=== PATIENT | male | born 1965 | race Caucasian/White ===

== ENCOUNTER 2017-07-28 12:51 | Inpatient (IN) | payer MEDICARE, MEDICAID ==
[~2017-07-28] VITALS: Ht 182.9 cm; Wt 144.5 kg
[2017-07-28] MEDS ORDERED: cloNIDine HCL 0.1 MG TAB PO ONE (13:30)
[2017-07-28 13:47] LABS: Basophils # (auto) 0.1 uL; Basophils % (auto) 1.2 % (0.0-2.0); Eosinophils # (auto) 0.2 uL; Eosinophils % (auto) 2.9 % (0.0-7.0); Hematocrit 43.1 % (41.0-53.0); Lymphocytes # (auto) 1.4 uL; Lymphocytes % (auto) 17.3 % (10.0-50.0); Mean Corpuscular Hemoglobin 31.9 pg (28.0-32.0); Mean Corpuscular Hgb Conc. 34.8 g/dL (32.0-36.0); Mean Corpuscular Volume 91.7 fL (80.0-100.0); Monocytes # (auto) 0.8 uL; Monocytes % (auto) 9.8 % (0.0-12.0); Neutrophils # (auto) 5.6 uL; Neutrophils % (auto) 68.8 % (37.0-80.0); Platelet Count (auto) 156 10^3/uL (140-450); Red Cell Distribution Width 14.9 % (11.8-14.3); White Blood Cell 8.2 10^3/uL (4.4-10.8)
[2017-07-28] MEDS ORDERED: FUROSEMIDE 40 MG/4 ML VIAL IV ONE (14:00)
[2017-07-28] MEDS ORDERED: ASPirin 81 mg TAB PO ONE (14:00)
[2017-07-28 14:05] LABS: Albumin 2.9 g/dL (3.4-5.0); BUN/Creatinine Ratio 15.7; Bilirubin, Total 0.6 mg/dL (0.2-1.0); Calcium 8.5 mg/dL (8.5-10.1); Potassium 3.8 mmol/L (3.5-5.1); Total Protein 6.7 g/dL (6.4-8.2)
[2017-07-28] MEDS ORDERED: MORPHINE SULFATE 4 MG/ML SYR/VIAL IV PRN (20:45)
[2017-07-28] MEDS ORDERED: NITROGLYCERIN 0.4 MG SL TAB SL PRN (20:45)
[2017-07-28] MEDS ORDERED: cloNIDine HCL 0.1 MG TAB PO PRN (20:45)
[2017-07-28] MEDS ORDERED: DEXTROSE (50%) 50ML SYRG IV PRN (20:45)
[2017-07-28] MEDS ORDERED: ONDANSETRON HCL 4 MG/2 ML VIAL IV PRN (20:45)
[2017-07-28] MEDS ORDERED: ACETAMINOPHEN 325 MG TAB PO PRN (20:45)
[2017-07-28] MEDS ORDERED: ENOXAPARIN SOD 150 MG/1 ML SYRINGE SC ONE (20:45)
[2017-07-28] MEDS ORDERED: IOHEXOL 350 MG/ML 100ML IJ ONE (21:21)
[2017-07-28] MEDS ORDERED: cloNIDine HCL 0.1 MG TAB ONE (21:38)
[2017-07-28] MEDS: FAMOTIDINE 20 MG TAB PO SCH (22:15)
[2017-07-28] MEDS: METOPROLOL TARTRATE 25 MG TAB PO SCH (22:15)
[2017-07-28] MEDS: HYDROcodone-ACET 5/325MG TAB PO PRN (22:16)
[2017-07-28 22:54] VITALS: BP 161/117
[2017-07-29] VITALS (7 sets, daily range): BP systolic 137–161; BP diastolic 74–119
[2017-07-29] MEDS: TEMAZEPAM 15 MG CAP PO PRN (01:00)
[2017-07-29] MEDS: ACCU-CHEK COMFORT CURVE STRIP VI SCH ×5 (01:01→23:44)
[2017-07-29] MEDS: InsuLIN REG 1unit/0.01ml Soln (100units/ml) SC SCH ×5 (01:01→23:45)
[2017-07-29] MEDS ORDERED: PREG50CA PO (02:05)
[2017-07-29] MEDS ORDERED: DIGO0.2570 PO (02:05)
[2017-07-29] MEDS ORDERED: AMIO200T33 PO (02:05)
[2017-07-29] MEDS ORDERED: SPIR25TA89 PO (02:05)
[2017-07-29] MEDS: HYDROcodone-ACET 5/325MG TAB PO PRN ×3 (05:31→22:08)
[2017-07-29 07:34] LABS: Basophils # (auto) 0.1 uL; Basophils % (auto) 1.1 % (0.0-2.0); Eosinophils # (auto) 0.3 uL; Eosinophils % (auto) 4.2 % (0.0-7.0); Hematocrit 41.2 % (41.0-53.0); Hemoglobin 14.2 g/dL (13.5-17.5); Lymphocytes # (auto) 1.8 uL; Lymphocytes % (auto) 25.5 % (10.0-50.0); Mean Corpuscular Hemoglobin 31.9 pg (28.0-32.0); Mean Corpuscular Hgb Conc. 34.5 g/dL (32.0-36.0); Mean Corpuscular Volume 92.5 fL (80.0-100.0); Monocytes # (auto) 0.7 uL; Monocytes % (auto) 10.1 % (0.0-12.0); Neutrophils # (auto) 4.3 uL; Neutrophils % (auto) 59.1 % (37.0-80.0); Nucleated Red Blood Cells % 0.1 %; Platelet Count (auto) 145 10^3/uL (140-450); Red Blood Cells 4.45 10^6/uL (4.5-5.90); Red Cell Distribution Width 14.8 % (11.8-14.3); White Blood Cell 7.2 10^3/uL (4.4-10.8)
[2017-07-29 07:50] LABS: Albumin 2.6 g/dL (3.4-5.0); BUN/Creatinine Ratio 15.9; Bilirubin, Total 0.8 mg/dL (0.2-1.0); Calcium 8.5 mg/dL (8.5-10.1); Potassium 3.1 mmol/L (3.5-5.1); Total Protein 6.3 g/dL (6.4-8.2)
[2017-07-29] MEDS: SPIRONOLACTONE 25 MG TAB PO SCH (09:41)
[2017-07-29] MEDS: METOPROLOL TARTRATE 25 MG TAB PO SCH ×2 (09:41→21:41)
[2017-07-29] MEDS: amLODIPine BESYLATE 5 MG TAB PO SCH (09:42)
[2017-07-29] MEDS: DIGOXIN 0.125 MG TAB PO SCH (09:43)
[2017-07-29] MEDS: FAMOTIDINE 20 MG TAB PO SCH ×2 (09:43→21:40)
[2017-07-29] MEDS ORDERED: FUROSEMIDE 40 MG TAB PO SCH (10:00)
[2017-07-29] MEDS ORDERED: ENOXAPARIN SOD 40 MG/0.4 ML SYRINGE SC SCH (10:00)
[2017-07-29] MEDS ORDERED: POTASSIUM CHL 10 Meq TABLET PO ONE (11:45)
[2017-07-29] MEDS ORDERED: FUROSEMIDE 40 MG TAB PO ONE (11:45)
[2017-07-29] MEDS ORDERED: LORazepam 2MG/ML-1ML VIAL IV PRN (12:15)
[2017-07-29] MEDS ORDERED: BUMETANIDE (0.25 MG/ML) INJ 10ML IV ONE (13:45)
[2017-07-29] MEDS: Boost Glucose Control 8 Ounces PO SCH ×2 (13:45→18:00)
[2017-07-29] MEDS ORDERED: ENOXAPARIN SOD 100 MG/1 ML SYRINGE SC ONE (14:00)
[2017-07-29 17:47] LABS: Alcohol, Urine < 3.0 mg/dL (0-5); Amphetamine Screen, Urine NEGATIVE (NEGATIVE); Barbiturate Scree,Urine NEGATIVE (NEGATIVE); Benzodiazephine Screen, Urine NEGATIVE (NEGATIVE); Cannabinoid Screen, Urine NEGATIVE (NEGATIVE); Cocaine Screen, Urine NEGATIVE (NEGATIVE); Opiate Scree,Urine NEGATIVE (NEGATIVE); Phencyclidine Screen, Urine NEGATIVE (NEGATIVE)
[2017-07-29 17:50] LABS: Urine Bacteria FEW /hpf (None Seen); Urine Blood Negative /uL (Negative); Urine Specific Gravity 1.005 (1.001-1.035); Urine WBC 1 /hpf (0 - 3)
[2017-07-29] MEDS: ENOXAPARIN SOD 150 MG/1 ML SYRINGE SC SCH (21:40)
[2017-07-30] VITALS (8 sets, daily range): BP systolic 116–155; BP diastolic 66–109
[2017-07-30] MEDS: TEMAZEPAM 15 MG CAP PO PRN (01:07)
[2017-07-30] MEDS: InsuLIN REG 1unit/0.01ml Soln (100units/ml) SC SCH ×3 (06:00→17:44)
[2017-07-30] MEDS: ACCU-CHEK COMFORT CURVE STRIP VI SCH ×3 (06:00→17:45)
[2017-07-30 06:30] LABS: Basophils # (auto) 0.1 uL; Basophils % (auto) 1.2 % (0.0-2.0); Eosinophils # (auto) 0.3 uL; Eosinophils % (auto) 3.9 % (0.0-7.0); Hematocrit 40.9 % (41.0-53.0); Hemoglobin 14.1 g/dL (13.5-17.5); Lymphocytes # (auto) 1.8 uL; Lymphocytes % (auto) 26.3 % (10.0-50.0); Mean Corpuscular Hemoglobin 31.9 pg (28.0-32.0); Mean Corpuscular Hgb Conc. 34.4 g/dL (32.0-36.0); Mean Corpuscular Volume 92.6 fL (80.0-100.0); Monocytes # (auto) 0.6 uL; Monocytes % (auto) 9.2 % (0.0-12.0); Neutrophils # (auto) 4.1 uL; Neutrophils % (auto) 59.4 % (37.0-80.0); Nucleated Red Blood Cells % 0.2 %; Platelet Count (auto) 151 10^3/uL (140-450); Red Blood Cells 4.41 10^6/uL (4.5-5.90); Red Cell Distribution Width 14.8 % (11.8-14.3); White Blood Cell 6.8 10^3/uL (4.4-10.8)
[2017-07-30 06:38] LABS: INR 1.02 (0.9-1.15); Partial Thromboplastin Time 34.4 sec (22.64-33.71); Prothrombin Time 11.1 sec (9.37-12.3)
[2017-07-30 06:45] LABS: Potassium 3.4 mmol/L (3.5-5.1)
[2017-07-30 06:46] LABS: BUN/Creatinine Ratio 17.3
[2017-07-30] MEDS: Boost Glucose Control 8 Ounces PO SCH ×3 (08:00→18:00)
[2017-07-30] MEDS: amLODIPine BESYLATE 5 MG TAB PO SCH (09:28)
[2017-07-30] MEDS: SPIRONOLACTONE 25 MG TAB PO SCH (09:29)
[2017-07-30] MEDS: FUROSEMIDE 40 MG TAB PO SCH (09:29)
[2017-07-30] MEDS: FAMOTIDINE 20 MG TAB PO SCH ×2 (09:29→22:40)
[2017-07-30] MEDS: DIGOXIN 0.125 MG TAB PO SCH (09:31)
[2017-07-30] MEDS: METOPROLOL TARTRATE 25 MG TAB PO SCH ×2 (09:31→22:41)
[2017-07-30] MEDS: ENOXAPARIN SOD 150 MG/1 ML SYRINGE SC SCH (09:32)
[2017-07-30] MEDS ORDERED: IODIXANOL 320MG/ML 100ML BTL IV ONE (10:50)
[2017-07-30] MEDS ORDERED: LIDOCAINE HCL 2 %PF INJ 10ML AMP IJ ONE (10:50)
[2017-07-30] MEDS ORDERED: fentaNYL CITRATE 100 MCG/2 ML VL ONE (12:13)
[2017-07-30] MEDS ORDERED: MIDAZOLAM HCL 1MG/1ML-2 ML VIAL ONE (12:13)
[2017-07-30] MEDS ORDERED: ANGIOMAX 250 MG VIAL IV ONE (12:13)
[2017-07-30] MEDS ORDERED: SODIUM CHL 0.9% 0 ML ONE (12:13)
[2017-07-30] MEDS ORDERED: POTASSIUM CHL 10 Meq TABLET PO ONE (12:15)
[2017-07-30] MEDS ORDERED: EPTIFIBATIDE INJ (2MG/ML) 10ML VIAL IV ONE (12:17)
[2017-07-30] MEDS ORDERED: VERAPAMIL 2.5MG/ML INJ 2ML VIAL IV ONE (12:17)
[2017-07-30] MEDS ORDERED: HEPARIN SODIUM (PORCINE) 5000 UNITS/ML 1ML VIAL ONE (12:38)
[2017-07-30] MEDS ORDERED: BUMETANIDE (0.25 MG/ML) INJ 10ML IV ONE (13:00)
[2017-07-30] MEDS: cloNIDine HCL 0.1 MG TAB PO PRN (13:47)
[2017-07-30] MEDS ORDERED: cloNIDine HCL 0.1 MG TAB PO ONE (14:30)
[2017-07-30] MEDS: AMIODARONE HCL 200 MG TAB PO SCH ×2 (15:36→22:41)
[2017-07-30] MEDS ORDERED: IPRATROPIUM BROM 0.5 MG/2.5ML INH SOL NEB PRN (15:45)
[2017-07-30] MEDS ORDERED: ALBUTEROL SULF 2.5 MG/0.5ML(0.5%) NEB SOLN NEB PRN (15:45)
[2017-07-30] MEDS: RIVAROXABAN 20 MG TAB PO SCH (17:45)
[2017-07-30] MEDS: IPRATROPIUM BROM 0.5 MG/2.5ML INH SOL NEB SCH (19:30)
[2017-07-30] MEDS: ALBUTEROL SULF 2.5 MG/0.5ML(0.5%) NEB SOLN NEB SCH (19:30)
[2017-07-30] MEDS: HYDROcodone-ACET 5/325MG TAB PO PRN (22:40)
[2017-07-31] VITALS (8 sets, daily range): BP systolic 147–168; BP diastolic 92–101
[2017-07-31] MEDS: ACCU-CHEK COMFORT CURVE STRIP VI SCH ×4 (00:21→18:33)
[2017-07-31] MEDS: InsuLIN REG 1unit/0.01ml Soln (100units/ml) SC SCH ×4 (00:22→18:34)
[2017-07-31] MEDS: IPRATROPIUM BROM 0.5 MG/2.5ML INH SOL NEB SCH ×4 (00:51→18:48)
[2017-07-31] MEDS: ALBUTEROL SULF 2.5 MG/0.5ML(0.5%) NEB SOLN NEB SCH ×4 (00:51→18:49)
[2017-07-31] MEDS: TEMAZEPAM 15 MG CAP PO PRN (01:21)
[2017-07-31 06:20] LABS: Basophils # (auto) 0.1 uL; Eosinophils # (auto) 0.2 uL; Hemoglobin 14.7 g/dL (13.5-17.5); Lymphocytes # (auto) 1.7 uL; Mean Corpuscular Hemoglobin 31.8 pg (28.0-32.0); Monocytes # (auto) 0.7 uL; Red Blood Cells 4.62 10^6/uL (4.5-5.90)
[2017-07-31 06:32] LABS: Basophils % (auto) 1.1 % (0.0-2.0); Eosinophils % (auto) 3.3 % (0.0-7.0); Hematocrit 42.9 % (41.0-53.0); Lymphocytes % (auto) 24.3 % (10.0-50.0); Mean Corpuscular Hgb Conc. 34.3 g/dL (32.0-36.0); Mean Corpuscular Volume 92.8 fL (80.0-100.0); Monocytes % (auto) 9.4 % (0.0-12.0); Neutrophils # (auto) 4.4 uL; Neutrophils % (auto) 61.9 % (37.0-80.0); Nucleated Red Blood Cells % 0.1 %; Platelet Count (auto) 164 10^3/uL (140-450); Red Cell Distribution Width 14.8 % (11.8-14.3); White Blood Cell 7.1 10^3/uL (4.4-10.8)
[2017-07-31 06:50] LABS: BUN/Creatinine Ratio 20.6; Bilirubin, Total 0.5 mg/dL (0.2-1.0); Calcium 9.4 mg/dL (8.5-10.1); Potassium 3.9 mmol/L (3.5-5.1)
[2017-07-31] MEDS: HYDROcodone-ACET 5/325MG TAB PO PRN ×2 (07:02→21:47)
[2017-07-31] MEDS: SPIRONOLACTONE 25 MG TAB PO SCH (10:04)
[2017-07-31] MEDS: amLODIPine BESYLATE 5 MG TAB PO SCH (10:05)
[2017-07-31] MEDS: FAMOTIDINE 20 MG TAB PO SCH ×2 (10:05→21:46)
[2017-07-31] MEDS: METOPROLOL TARTRATE 25 MG TAB PO SCH ×2 (10:06→21:47)
[2017-07-31] MEDS: DIGOXIN 0.125 MG TAB PO SCH (10:06)
[2017-07-31] MEDS: FUROSEMIDE 40 MG TAB PO SCH (10:06)
[2017-07-31] MEDS: AMIODARONE HCL 200 MG TAB PO SCH ×2 (10:07→21:47)
[2017-07-31] MEDS: Boost Glucose Control 8 Ounces PO SCH ×3 (10:08→18:32)
[2017-07-31] MEDS: cloNIDine HCL 0.1 MG TAB PO PRN ×2 (12:37→18:36)
[2017-07-31] MEDS ORDERED: AML5T PO (14:41)
[2017-07-31] MEDS ORDERED: SPIR25TA88 PO (14:41)
[2017-07-31] MEDS ORDERED: AMI200T PO (14:41)
[2017-07-31] MEDS ORDERED: FURO40TA4 PO (14:41)
[2017-07-31] MEDS ORDERED: PATIENTS OWN MEDICATION (xarelto 20 MG) PO SCH (18:00)
[2017-07-31] MEDS: RIVAROXABAN 20 MG TAB PO SCH (18:33)
[2017-08-01] MEDS: IPRATROPIUM BROM 0.5 MG/2.5ML INH SOL NEB SCH ×3 (00:49→12:07)
[2017-08-01] MEDS: ALBUTEROL SULF 2.5 MG/0.5ML(0.5%) NEB SOLN NEB SCH ×3 (00:49→12:07)
[2017-08-01] MEDS: InsuLIN REG 1unit/0.01ml Soln (100units/ml) SC SCH ×3 (00:50→13:54)
[2017-08-01] MEDS: TEMAZEPAM 15 MG CAP PO PRN (02:33)
[2017-08-01] MEDS: HYDROcodone-ACET 5/325MG TAB PO PRN ×2 (02:34→09:49)
[2017-08-01 05:34] VITALS: BP 189/79
[2017-08-01] MEDS: ACCU-CHEK COMFORT CURVE STRIP VI SCH ×3 (06:00→12:00)
[2017-08-01 08:00] VITALS: BP 169/90
[2017-08-01] MEDS: Boost Glucose Control 8 Ounces PO SCH ×2 (08:00→12:00)
[2017-08-01 09:00] VITALS: BP 169/90
[2017-08-01] MEDS: SPIRONOLACTONE 25 MG TAB PO SCH (09:46)
[2017-08-01] MEDS: amLODIPine BESYLATE 5 MG TAB PO SCH (09:46)
[2017-08-01] MEDS: DIGOXIN 0.125 MG TAB PO SCH (09:47)
[2017-08-01] MEDS: AMIODARONE HCL 200 MG TAB PO SCH (09:47)
[2017-08-01] MEDS: FAMOTIDINE 20 MG TAB PO SCH (09:49)
[2017-08-01] MEDS: FUROSEMIDE 40 MG TAB PO SCH (09:50)
[2017-08-01] MEDS ORDERED: METOPROLOL TARTRATE 50 MG TAB PO SCH (10:00)
[2017-08-01] MEDS ORDERED: METOPROLOL TARTRATE 25 MG TAB PO SCH (10:00)
[2017-08-01 11:39] LABS: BUN/Creatinine Ratio 18.1; Calcium 9.3 mg/dL (8.5-10.1)
[2017-08-01] MEDS ORDERED: MET50T PO (12:07)
[2017-08-01] MEDS ORDERED: RIV20T PO (12:11)
[2017-08-01 13:00] VITALS: BP 146/93
[2017-08-01 15:49] VITALS: BP 146/93
[2017-08-01 16:35] VITALS: BP 146/93
== END 2017-08-01 16:35 | DRG 280 ==
LOC: ER 12:51 → TELE 12:52 → TELE-WESTW 22:55
PROVIDERS: ADMIT Nurse Practitioner; ATTEND Internal Medicine
PROC: 4A023N7 Measurement of Cardiac Sampling and Pressure, Left Heart, Percutaneous Approach (ICD-10-PCS; principal; 2017-07-30)
PROC: B2111ZZ Fluoroscopy of Multiple Coronary Arteries using Low Osmolar Contrast (ICD-10-PCS; 2017-07-30)
DX: I11.0 Hypertensive heart disease with heart failure (principal); I21.4 Non-ST elevation (NSTEMI) myocardial infarction; J96.00 Acute respiratory failure, unspecified whether with hypoxia or hypercapnia; E44.0 Moderate protein-calorie malnutrition; D68.69 Other thrombophilia; E11.51 Type 2 diabetes mellitus with diabetic peripheral angiopathy without gangrene; E11.65 Type 2 diabetes mellitus with hyperglycemia; I48.1 Persistent atrial fibrillation; I48.92 Unspecified atrial flutter; Z68.41 Body mass index [BMI] 40.0-44.9, adult; I50.43 Acute on chronic combined systolic (congestive) and diastolic (congestive) heart failure; E66.01 Morbid (severe) obesity due to excess calories; F17.210 Nicotine dependence, cigarettes, uncomplicated; J44.9 Chronic obstructive pulmonary disease, unspecified; F12.90 Cannabis use, unspecified, uncomplicated; G89.29 Other chronic pain; E87.6 Hypokalemia; R74.8 Abnormal levels of other serum enzymes; G47.00 Insomnia, unspecified; I25.10 Atherosclerotic heart disease of native coronary artery without angina pectoris; M54.42 Lumbago with sciatica, left side; M54.41 Lumbago with sciatica, right side; I25.2 Old myocardial infarction; Z86.73 Personal history of transient ischemic attack (TIA), and cerebral infarction without residual deficits; Z71.89 Other specified counseling
CPT/HCPCS: 36415; 71046; 71275; 80048; 80053; 80307; 81001; 82962; 83036; 83735; 83880; 84484; 85025; 85379; 85610; 85730; 93005; 93306; 93458; 93970; 94640; 94761; 96372; 96374; 99152; J1815; J2250; J2405; Q9967

== ENCOUNTER 2018-07-18 13:01 | Emergency (ER) | payer MEDICARE, MEDICAID ==
[~2018-07-18] VITALS: Ht 182.9 cm; Wt 154.2 kg
[~2018-07-18 13:01] MED LIST: AMI200T PO; AMIO200T33 PO; AML5T PO; DIGO0.2570 PO; FURO40TA4 PO; MET50T PO; PREG50CA PO; RIV20T PO; SPIR25TA88 PO
[2018-07-18 15:42] LABS: Basophils # (auto) 0.1 uL; Eosinophils # (auto) 0.2 uL; Hematocrit 46.8 % (41.0-53.0); Hemoglobin 16.4 g/dL (13.5-17.5); Lymphocytes # (auto) 1.7 uL; Lymphocytes % (auto) 21.1 % (10.0-50.0); Mean Corpuscular Hemoglobin 33.1 pg (28.0-32.0); Mean Corpuscular Volume 94.6 fL (80.0-100.0); Monocytes # (auto) 0.8 uL; Monocytes % (auto) 9.5 % (0.0-12.0); Neutrophils # (auto) 5.3 uL; Neutrophils % (auto) 65.4 % (37.0-80.0); Nucleated Red Blood Cells % 0.2 %; Platelet Count (auto) 139 10^3/uL (140-450); Red Blood Cells 4.95 10^6/uL (4.5-5.90); Red Cell Distribution Width 13.9 % (11.8-14.3); White Blood Cell 8.1 10^3/uL (4.4-10.8)
[2018-07-18 15:48] LABS: Albumin 3.4 g/dL (3.4-5.0); Potassium 3.6 mmol/L (3.5-5.1)
[2018-07-18 15:52] LABS: BUN/Creatinine Ratio 13.4; Bilirubin, Total 0.8 mg/dL (0.2-1.0); Total Protein 7.2 g/dL (6.4-8.2)
[2018-07-18] MEDS ORDERED: SODIUM CHLORIDE 0.9% 1,000 ML IV ONE (18:15)
[2018-07-18] MEDS ORDERED: InsuLIN REG 1unit/0.01ml Soln (100units/ml) IV ONE (18:15)
[2018-07-18 20:20] LABS: Amphetamine Screen, Urine NEGATIVE (NEGATIVE); Barbiturate Scree,Urine NEGATIVE (NEGATIVE); Cannabinoid Screen, Urine POSITIVE (NEGATIVE); Cocaine Screen, Urine NEGATIVE (NEGATIVE); Opiate Scree,Urine NEGATIVE (NEGATIVE); Phencyclidine Screen, Urine NEGATIVE (NEGATIVE)
[2018-07-18 20:27] LABS: Benzodiazephine Screen, Urine NEGATIVE (NEGATIVE)
[2018-07-18 20:32] LABS: Urine Bacteria FEW /hpf (None Seen); Urine Blood Negative /uL (Negative); Urine Hyaline Cast FEW /lpf (0 - 2); Urine Mucus FEW (None Seen); Urine Specific Gravity 1.023 (1.001-1.035); Urine WBC 2 /hpf (0 - 3)
[2018-07-18] MEDS ORDERED: HYDROmorphone HCL 2 MG/ML VL IV ONE ×2 (23:30)
[2018-07-18] MEDS ORDERED: ONDANSETRON HCL 4 MG/2 ML VIAL IV ONE (23:30)
[2018-07-19 00:41] VITALS: BP 184/88
== END 2018-07-19 00:42 | disposition home or self-care (01) ==
LOC: ER 13:07
DX: M54.16 Radiculopathy, lumbar region (principal); E11.65 Type 2 diabetes mellitus with hyperglycemia; G89.4 Chronic pain syndrome; I48.91 Unspecified atrial fibrillation; J44.9 Chronic obstructive pulmonary disease, unspecified; I25.2 Old myocardial infarction; E07.9 Disorder of thyroid, unspecified; F17.210 Nicotine dependence, cigarettes, uncomplicated; F15.90 Other stimulant use, unspecified, uncomplicated; Z88.8 Allergy status to other drugs, medicaments and biological substances; Z86.73 Personal history of transient ischemic attack (TIA), and cerebral infarction without residual deficits; Z79.899 Other long term (current) drug therapy
CPT/HCPCS: 36415; 72128; 72131; 80053; 80307; 80320; 81001; 82010; 82962; 83036; 85025; 93005; 96361; 96374; 96375; 99284; J1170; J1815; J2405; J7030

== ENCOUNTER 2019-03-04 12:44 | Inpatient (IN) | payer OTHER, MEDICAID ==
[2019-03-04] VITALS (18 sets, daily range): BP systolic 119–156; BP diastolic 40–99
[~2019-03-04] VITALS: Ht 190.5 cm; Wt 154.0 kg
--- NOTE | 2019-03-04 12:15 | NUR ---
Pt being admitted to ICU ZACHHARINDER admitted to ICU via gurney on radiation monitor, and portable 02. Patient transfered to bed, connected to ICU monitoring and oxygen, and weighed by bedscale. Patient oriented to Yg frank RN, unit, room, bed, and unit policies regarding patient care and visiting hours. All questions and concerns addressed, patient verbalized understanding.
[~2019-03-04 12:44] MED LIST changes: -AMI200T PO; +AMIO200T4 PO
[2019-03-04] MEDS ORDERED: DEXTROSE (50%) 50ML SYRG IV PRN (13:00)
[2019-03-04] MEDS ORDERED: MORPHINE SULF INJ 2 MG/ML SYRINGE 1ML IV PRN ×2 (13:00→13:15)
[2019-03-04] MEDS ORDERED: NITROGLYCERIN 0.4 MG SL TAB SL PRN (13:00)
--- NOTE | 2019-03-04 13:05 | NUR ---
JEFF JAQUEZ AT BEDSIDE
[2019-03-04] MEDS ORDERED: ACETAMINOPHEN 500 MG TAB PO PRN (13:15)
[2019-03-04] MEDS ORDERED: NITROGLYCERIN 50MG/250ML 250 ML IV SCH (13:15)
[2019-03-04 14:06] LABS: Basophils # (auto) 0.1 uL; Basophils % (auto) 1.1 % (0.0-2.0); Eosinophils # (auto) 0.3 uL; Eosinophils % (auto) 5.1 % (0.0-7.0); Hemoglobin 15.6 g/dL (13.5-17.5); Lymphocytes # (auto) 0.8 uL; Lymphocytes % (auto) 15.2 % (10.0-50.0); Mean Corpuscular Hemoglobin 32.1 pg (28.0-32.0); Mean Corpuscular Volume 94.5 fL (80.0-100.0); Monocytes # (auto) 0.8 uL; Neutrophils # (auto) 3.5 uL; Neutrophils % (auto) 63.6 % (37.0-80.0); Nucleated Red Blood Cells % 0.1 %; Platelet Count (auto) 126 10^3/uL (140-450); Red Blood Cells 4.87 10^6/uL (4.5-5.90); Red Cell Distribution Width 13.9 % (11.8-14.3); White Blood Cell 5.4 10^3/uL (4.4-10.8)
[2019-03-04] MEDS: HYDROcodone-ACET 5/325MG TAB PO PRN ×2 (14:11→22:33)
--- NOTE | 2019-03-04 14:21 | NUR ---
MEDICATION RECONCILIATION UNABLE TO PERFORM MED REC. PATIENT HAS NO LIST OF MEDICATIONS. PER PATIENT HE WILL HAVE SOMEONE FAX PATIENTS CURRENT MEDICATIONS TO ICU FAX MACHINE
[2019-03-04 14:23] LABS: INR 0.95 (0.9-1.15); Partial Thromboplastin Time 27.7 sec (23.64-32.05)
[2019-03-04 14:37] LABS: Calcium 8.7 mg/dL (8.5-10.1); Potassium 4.1 mmol/L (3.5-5.1)
--- NOTE | 2019-03-04 14:46 | NUR ---
EKG PERFORMED AND PLACED IN CHART
[2019-03-04] MEDS ORDERED: NITROGLYCERIN 0.4MG/HR TOPICAL PATCH TD ONE (16:00)
--- NOTE | 2019-03-04 16:17 | NUR ---
PATIENT OUT OF BED TO CHAIR
--- NOTE | 2019-03-04 17:08 | NUR ---
DR. ODOM AT BEDSIDE
[2019-03-04] MEDS: ACCU-CHEK COMFORT CURVE STRIP VI SCH ×2 (17:32→22:00)
[2019-03-04] MEDS: InsuLIN REG 1unit/0.01ml Soln (100units/ml) SC SCH ×2 (17:33→22:00)
[2019-03-04] MEDS ORDERED: RIVAROXABAN 20 MG TAB PO SCH (18:00)
--- NOTE | 2019-03-04 18:32 | NUR ---
PATIENT PROVIDED WITH DINNER TRAY
--- NOTE | 2019-03-04 19:10 | NUR ---
OPEN ASSUMED CARE OF MALE PT.PT IS AOX4, NL 2 L, LUNGS ARE DIMINISHED. PT IS SITTING UP IN THE CHAIR NEXT TO HIS BED WATCHING TV, VS ARE WNL, NO SS OF DISTRESS NOTED AT THIS TIME. PT SKIN IS INTACT, PT AMBULATES TO AND FROM CHAIR AND BED WITHOUT ASSISTANCE. PT HAS R 20 AC IV AND A R 20 HAND IV. BOTH IVS FLUSHED WITH NS, THEY ARE PATENT, FLUSHED WITHOUT RESISTANCE. BILATERALLY ASYMPTOMATIC. PT HAS SLIP RESISTANT SOCK ON AND WAS EDUCATED ON THE CALL LIGHT. PT VERBALIZED UNDERSTANDING. CALL LIGHT WITHIN REACH. CHAIR IS LOCKED. PT IS IN FULL VIEW OF RN STATION, WILL CONTINUE TO CARE FOR AND MONITOR.
[2019-03-04] MEDS ORDERED: ENOXAPARIN SOD 120 MG/0.8 ML SYRINGE SC SCH (22:00)
[2019-03-04] MEDS: ENOXAPARIN SOD 120 MG/0.8 ML SYRINGE SC SCH (22:00)
--- NOTE | 2019-03-04 22:30 | NUR ---
PAIN PT STATED HE WAS IN PAIN 12/29. VS ARE STABLE. PT WAS GIVEN PRESCRIBED PAIN MEDICATION. WILL REASSESS.
--- NOTE | 2019-03-04 22:30 | NUR ---
INSULIN PT BS REQUIRED INSULIN, INSULIN WAS GIVEN ACCORDING PROTOCOL PRESCRIBED TO PT.
[2019-03-04] MEDS: METOPROLOL TARTRATE 50 MG TAB PO SCH (22:32)
[2019-03-04] MEDS: AMIODARONE HCL 200 MG TAB PO SCH (22:32)
--- NOTE | 2019-03-04 23:10 | NUR ---
REPORT GIVEN TO IMELDA BONILLA RN WHO WILL BE ASSUMING CARE OF PT
--- NOTE | 2019-03-04 23:15 | NUR ---
NO SS OF DISTRESS NOTED AT THIS TIME PT VS ARE WNL, PT IS NOT SHOWING ANY SS OF DISTRESS AT THIS TIME. PT IS SITTING UP IN BED WATCHING TV AND LAUGHING.
--- NOTE | 2019-03-04 23:24 | NUR ---
Telemetry admit from icu HARINDER SERRANO admitted to Telemetry unit, BY ASSEMBLER CAMPER VIA A WHEELCHAIR after SBAR GIVEN TO RECIEVING RN. Patient now on continuous telemetry monitoring,ACCOMPANYING HIM IS ALL BELONGINGS HE HAD HERE IN THE ICU. All questions and concerns addressed, patient verbalized understanding. VS ARE STABLE, NO PAIN AT THIS TIME. IVS ARE FLUSHED AND PATENT. PT IS NOW OFF THE FLOOR.
--- NOTE | 2019-03-04 23:33 | NUR ---
received pt. from icu, pt. awake, alert and oriented, no c/o pain ,advised pt. npo after mn, not in distress, to continue pt. care.
[2019-03-05] MEDS: InsuLIN REG 1unit/0.01ml Soln (100units/ml) SC SCH ×3 (06:10→16:40)
[2019-03-05] MEDS: ACCU-CHEK COMFORT CURVE STRIP VI SCH ×3 (06:11→16:40)
[2019-03-05 06:12] VITALS: BP 146/86
[2019-03-05] MEDS: HYDROcodone-ACET 5/325MG TAB PO PRN (07:30)
--- NOTE | 2019-03-05 07:30 | NUR ---
Opening Shift Note Assumed care of patient. He is alert and oriented x4. no discomfort, shortness of breath, or pain noted. Patient was instructed on the plan of care and verbalized understanding. Bed in lowest position, bed rail upx2, call light in reach. will continue to monitor.
--- NOTE | 2019-03-05 07:50 | NUR ---
Taken to chemical laboratory chief Patient taken to chemical laboratory chief at 0750. no distress noted during transport.
[2019-03-05] MEDS ORDERED: IODIXANOL 320MG/ML 100ML BTL IV ONE (08:33)
[2019-03-05] MEDS ORDERED: LIDOCAINE 2%HCL (LOCAL ANESTH.) INJ 20ML MDV ONE (08:33)
[2019-03-05] MEDS ORDERED: ANGIOMAX 250 MG VIAL IV ONE (09:10)
[2019-03-05] MEDS ORDERED: fentaNYL CITRATE 100 MCG/2 ML VL ONE (09:11)
[2019-03-05] MEDS ORDERED: SODIUM CHL 0.9% 0 ML ONE (09:11)
[2019-03-05] MEDS ORDERED: VERAPAMIL 2.5MG/ML INJ 2ML VIAL IV ONE (09:11)
[2019-03-05] MEDS ORDERED: MIDAZOLAM HCL 1MG/1ML-2 ML VIAL ONE (09:11)
[2019-03-05] MEDS ORDERED: FUROSEMIDE 40 MG TAB PO SCH (10:00)
[2019-03-05] MEDS ORDERED: SPIRONOLACTONE 25 MG TAB PO SCH (10:00)
[2019-03-05] MEDS: ENOXAPARIN SOD 120 MG/0.8 ML SYRINGE SC SCH (10:00)
[2019-03-05] MEDS ORDERED: amLODIPine BESYLATE 5 MG TAB PO SCH (10:00)
--- NOTE | 2019-03-05 10:00 | NUR ---
patient at label paster for procedure Addendum: 03/05/19 at 1401 by MONIQUE MONTGOMERY RN RN Amended: Links added.
--- NOTE | 2019-03-05 10:00 | NUR ---
patient at labor economics teacher for procedure Addendum: 03/05/19 at 1401 by MONIQUE MONTGOMERY RN RN Amended: Links added.
--- NOTE | 2019-03-05 10:00 | NUR ---
patient at tree tapping laborer for procedure Addendum: 03/05/19 at 1358 by MONIQUE MONTGOMERY RN RN Amended: Links added.
[2019-03-05] MEDS ORDERED: HEPARIN SODIUM (PORCINE) 5000 UNITS/ML 1ML VIAL ONE (10:12)
--- NOTE | 2019-03-05 10:25 | NUR ---
Report received Report received from SONIDO Salcido from laboratory equipment cleaner via telephone. Vasc Band removal to begin at 1110. will follow instructions as ordered.
--- NOTE | 2019-03-05 10:55 | NUR ---
Patient returned from wetlands conservation laborer Patient returned from wetlands conservation laborer via gurney. Instructions for Vasc Band removal received. Patient vitals taken, BP 145/106, HR 67, Respiratory rate 14, Oxygen saturation 97%. No signs or symptoms of stress. Will continue to monitor.
[2019-03-05] MEDS: AMIODARONE HCL 200 MG TAB PO SCH (11:34)
[2019-03-05] MEDS: METOPROLOL TARTRATE 50 MG TAB PO SCH (11:35)
[2019-03-05 13:15] VITALS: BP 139/94
--- NOTE | 2019-03-05 13:29 | NUR ---
Vasc Band Removal Vasc band removed per Vasc band removal instructions in patient chart. Vasc band was deflated completely, carefully removed, and dry dressing was applied. patient was educated per instructions. patient tolerated well, no signs of distress noted. will continue to monitor.
[2019-03-05] MEDS ORDERED: hydrALAZINE HCL 20 MG/ML VL IV ONE ×2 (13:30→14:30)
--- NOTE | 2019-03-05 13:55 | NUR ---
Polytechnic Teacher Consult clinical services professional consult ordered for patient transportation upon discharge.
[2019-03-05] MEDS ORDERED: ATO40T PO (14:21)
[2019-03-05] MEDS ORDERED: METOPROLOL TARTRATE 1MG/1ML-5ML VIAL IV ONE (14:30)
[2019-03-05 15:50] VITALS: BP 139/94
--- NOTE | 2019-03-05 16:00 | NUR ---
Called prescription to [facility] Spoke with pharmacist Britany, regarding patients new medication order of Lipitor upon discharge. Per Britany, medication is unavailable to fill until after March 30, as patient already has a full supply of this prescription. Patient is aware that medication is on hold at the pharmacy until next fill date.
--- NOTE | 2019-03-05 17:15 | NUR ---
D/C Planning Per consult to arrange transportation. Contacted [facility] Ph:( [phone]) Fax:( [phone]) faxed transportation form request to arrange pick up man time at 17:30 via [email or web address]. Per Alyssa from [facility] transportation time will be at 17:30 via gurney and [facility] will be transporting Pt home. Informed Pt at bedside and SONIDO Nichole. Addendum: 03/05/19 at 1718 by PEYMAN FAROOQ Amended: Links added.
[2019-03-05 17:35] VITALS: BP 140/82
--- NOTE | 2019-03-05 18:40 | NUR ---
PATIENT ROUNDS PATIENT SITTING ON THE SIDE OF THE BED, WAITING FOR TRANSPORTATION SUPERVISOR STITCHING DEPARTMENT TO ARRIVE FOR DISCHARGE HOME. NO S/S OF DISTRESS OR SOB, NO PAIN NOTED OR REPORTED. DINNER TRAY PROVIDED. WILL ENDORSE CARE TO LOGISTICS DIRECTOR RN
--- NOTE | 2019-03-05 19:30 | NUR ---
As per report Marylu Salesly said she gave the patient all the discharge instructions and papers already, just remove the tele box, and the i.v.line.only waiting for the transport.
--- NOTE | 2019-03-05 19:58 | NUR ---
Awaiting for transport to go home, seen the tele box in the table, returned to the tele room.
--- NOTE | 2019-03-05 20:05 | NUR ---
Discharged patient in good condition accompanied by the transport per nirmala to bring patient home, all discharge papers are with him given by the day shift Judith
--- NOTE | 2019-03-05 20:05 | NUR ---
Transport pick-up the patient to bring home, patient is alert oriented not in distress, removed the i.v.line x 2,
== END 2019-03-05 20:05 | disposition home or self-care (01) | DRG 287 ==
LOC: ICU WEST 12:44 → TELE-CENTR 23:21
PROVIDERS: ADMIT Nurse Practitioner Acute Care; ATTEND Internal Medicine
PROC: 4A023N7 Measurement of Cardiac Sampling and Pressure, Left Heart, Percutaneous Approach (ICD-10-PCS; principal; 2019-03-05)
PROC: B211YZZ Fluoroscopy of Multiple Coronary Arteries using Other Contrast (ICD-10-PCS; 2019-03-05)
PROC: B215YZZ Fluoroscopy of Left Heart using Other Contrast (ICD-10-PCS; 2019-03-05)
PROC: 4A033BC Measurement of Arterial Pressure, Coronary, Percutaneous Approach (ICD-10-PCS; 2019-03-05)
DX: I25.10 Atherosclerotic heart disease of native coronary artery without angina pectoris (principal); I48.91 Unspecified atrial fibrillation; I25.2 Old myocardial infarction; E66.9 Obesity, unspecified; I50.9 Heart failure, unspecified; J44.9 Chronic obstructive pulmonary disease, unspecified; I11.0 Hypertensive heart disease with heart failure; F03.90 Unspecified dementia, unspecified severity, without behavioral disturbance, psychotic disturbance, mood disturbance, and anxiety; E11.9 Type 2 diabetes mellitus without complications; Z86.73 Personal history of transient ischemic attack (TIA), and cerebral infarction without residual deficits; Z82.49 Family history of ischemic heart disease and other diseases of the circulatory system; Z91.19 Patient's noncompliance with other medical treatment and regimen; Z87.891 Personal history of nicotine dependence
CPT/HCPCS: 36415; 80048; 80061; 80162; 82962; 83036; 84484; 85025; 85610; 85730; 87081; 93005; 93306; 93458; 93571; 99152; G0378; J1815; J2250; Q9967